=== PATIENT | female | born 1930 | race Caucasian/White ===

== ENCOUNTER 2017-01-13 16:31 | Emergency (ER) | payer MEDICARE ==
[2017-01-13 17:03] VITALS: BP 126/67
--- NOTE | 2017-01-13 17:14 | UC ---
Skin Complaint HPI - HPI Summary HPI Summary: Pt here w/ bump in mid-abdomen around bellybutton x1 week, since about 01/06/17. Pt states she noticed hard bump "across my stomach", but that bump has gotten smaller last couple days. States bump is around her belly button now. Denies any abd pain and bump is not painful to touch. Also denies nausea, diarrhea or vomiting. States last couple days she's had some constipation- taking Colace daily. States she has not eaten alot the last couple days because she was afraid the bump in stomach would get bigger/worse. States she saw PCP for rash c /o on Friday01/06/17 but forgot to tell PCP about this problem. Has hx of liver cancer, states they did some "sort of operation in [place] to remove small mass" back in 2012. States she has f/u w/ oncologist next month. Per patient she had a rash in the axilla, groin and neck and treated with steroid cream which helped minimally. Her PCP is on vacation this week and she can not be seen for at least 1 week and is asking for a work up including CT scan. [ End ] - History of Current Complaint Chief Complaint: UCGI Time Seen by Provider: 01/13/17 16:49 Stated Complaint: BOWEL/STOMACH COMPLAINT Hx Obtained From: Patient, Family/Handwriting Expert Onset/Duration: Gradual Onset Aggravating: Nothing Alleviating: Nothing Associated Signs & Symptoms: Positive: Negative - Allergy/Home Medications Allergies/Adverse Reactions: Allergies Allergy/AdvReac Type Severity Reaction Status Date / Time Sulfa Drugs Allergy Unknown See Comment Verified 01/13/17 16:43 Ibuprofen Allergy Unknown Verified 01/13/17 16:43 Reaction Details Moxifloxacin [From Avelox] Allergy Unknown Verified 01/13/17 16:43 Reaction Details Tramadol [From Ultram] Allergy Unknown Verified 01/13/17 16:43 Reaction Details Home Medications: Home Medications Allopurinol TAB* [Zyloprim 100 MG TAB*] 100 mg PO BEDTIME 01/13/17 [History Confirmed 01/13/17] Nystatin CREAM* [Nystatin Cream*] 1 applic BID 01/13/17 [History Confirmed 01/13] Review of Systems Gastrointestinal: Other - ABDOMINAL MASS All Other Systems Reviewed And Are Negative: Yes PMH/Surg Hx/FS Hx/Imm Hx Previously Healthy: Yes Cardiovascular History: Cardiac Disease GI/ History: Renal Disease Cancer History: Other - liver cancer Other Cancer History: liver - Surgical History Surgical History: Yes Surgery Procedure, Year, and Place: cardiac valve replacement ; SX on the liver for liver CA 2012; mastoid left ear in 02/2013; 03/2013 cataract SX left eye; cataract SX right eye 8 yrs ago; GB removed 2013; - Social History Alcohol Use: None Substance Use Type: None Smoking Status (MU): Never Smoked Tobacco - Immunization History Most Recent Influenza Vaccination: NOT YET 2016 Physical Exam Triage Information Reviewed: Yes Vital Signs: Initial Vital Signs Temp 98.4 F 01/13/17 16:49 Pulse 84 01/13/17 16:49 Resp 18 01/13/17 16:49 BP 126/67 01/13/17 16:49 Pulse Ox 100 01/13/17 16:49 Vital Signs Reviewed: Yes Eye Exam: Normal ENT Exam: Normal Dental Exam: Normal Neck exam: Normal Respiratory Exam: Normal Cardiovascular: Positive: Murmur:Sys:Grade _?_/ - 2 Abdomen Description: Positive: Nontender, Other: - midline mass 4x4 cm. Negative: Bruit, CVA Tenderness (R), CVA Tenderness (L), Distended, Guarding Musculoskeletal Exam: Normal Neurological Exam: Normal Psychological Exam: Normal Skin Exam: Normal Skin: Positive: rashes - maculopapular red rask on the right lateral neck approx 2x2 cm Course/Dx - Course Course Of Treatment: With history of previous liver cancer, kidney disease and previous valve repalcement and new onset mass patient will be referred to the hospital for further work up . She will need higher level of care. I spoke with Meng Segundo NP - Diagnoses Provider Diagnoses: abdominal mass Discharge - Discharge Plan Condition: Fair Disposition: OTHER Discharge Disposition Comment: fair -- to go to ED for work up Patient Education Materials: Soft Tissue Mass (ED) Referrals: Rubi Reid MD [Primary Care Provider] - 3 Days Additional Instructions: PLEASE GO DIRECTLY TO THE EMERGENCY DEPARTMENT AT [place]. YOU HAVE DECLINED AMBULANCE.
== END 2017-01-13 17:48 ==
LOC: UCCORT 16:31
DX: R19.05 Periumbilic swelling, mass or lump (principal); N28.9 Disorder of kidney and ureter, unspecified; Z95.2 Presence of prosthetic heart valve; Z85.05 Personal history of malignant neoplasm of liver
CPT/HCPCS: 99212; G0463